=== PATIENT | male | born 1990 | race Caucasian/White ===

== ENCOUNTER 2025-02-21 02:48 | Emergency (ER) | payer OTHER ==
[~2025-02-21] VITALS: Ht 162.6 cm; Wt 45.4 kg
== END 2025-02-21 03:52 | disposition home or self-care (01) ==
LOC: ER 02:48
DX: T14.90XA Injury, unspecified, initial encounter (principal); E11.65 Type 2 diabetes mellitus with hyperglycemia; V89.2XXA Person injured in unspecified motor-vehicle accident, traffic, initial encounter
CPT/HCPCS: 82947; 99284